=== PATIENT | male | born 1995 | race Caucasian/White ===

== ENCOUNTER 2020-12-14 04:26 | Emergency (ER) | payer OTHER ==
[~2020-12-14] VITALS: Ht 172.7 cm; Wt 81.8 kg
[2020-12-14 04:28] VITALS: TEMP 97.5
[2020-12-14 08:57] VITALS: BP 106/40; PULSE 92
== END 2020-12-14 08:57 | disposition home or self-care (01) ==
LOC: COL.ER 04:26
DX: F10.129 Alcohol abuse with intoxication, unspecified (principal)